=== PATIENT | female | born 2000 | race Caucasian/White ===

== ENCOUNTER 2023-12-21 20:57 | Emergency (ER) | payer OTHER ==
[~2023-12-21] VITALS: Ht 167.6 cm; Wt 63.6 kg
[2023-12-21] MEDS ORDERED: Acetaminophen 500 MG TAB PO ONE (23:15)
[2023-12-21] MEDS ORDERED: Ibuprofen 400 MG TAB PO ONE (23:15)
[2023-12-21 23:22] LABS: STREP A NEGATIVE
[2023-12-22 00:48] VITALS: BP 126/79; PULSE 96; TEMP 99.8
== END 2023-12-22 00:48 | disposition home or self-care (01) ==
LOC: COL.ER 20:57
PROVIDERS: Nurse Practitioner Primary Care
DX: J06.9 Acute upper respiratory infection, unspecified (principal)